=== PATIENT | female | born 2000 | race Two or more races ===

== ENCOUNTER 2023-10-16 12:56 | Emergency (ER) | payer OTHER ==
[~2023-10-16] VITALS: Ht 165.1 cm; Wt 132.4 kg
[2023-10-16] MEDS: IBUPROFEN 600MG TAB PO ONE (15:23)
[2023-10-16 15:52] LABS: BASO # 0.1 10^3/uL (0.0-0.2); BASO % 0.5 % (0.0-1.0); EOS # 0.1 10^3/uL (0.0-0.5); EOS % 1.3 % (0.0-3.0); HEMATOCRIT 40.4 % (36.0-47.0); HEMOGLOBIN 13.6 g/dl (12.0-15.5); LYMPH # 3.1 10^3/uL (1.5-5.0); MEAN CORPUSCULAR HEMOGLOBIN 29.8 pg (27.0-33.0); MEAN CORPUSCULAR HGB CONC 33.7 g/dl (32.0-36.5); MEAN CORPUSCULAR VOLUME 88.4 fl (80.0-96.0); MONO # 0.6 10^3/uL (0.0-0.8); MONO % 5.5 % (2.0-8.0); NEUTROPHILS % 63.2 % (36.0-66.0); PLATELET COUNT, AUTOMATED 267 10^3/uL (150-450); RED BLOOD COUNT 4.57 10^6/uL (4.00-5.40)
[2023-10-16 16:17] LABS: HCG, SERUM QUALITATIVE NEGATIVE (NEGATIVE)
[2023-10-16 16:39] VITALS: BP 132/79; TEMP 98.6; O2SAT 97
== END 2023-10-16 16:59 | disposition home or self-care (01) ==
LOC: M ED 12:56
DX: N93.9 Abnormal uterine and vaginal bleeding, unspecified (principal); E28.2 Polycystic ovarian syndrome

== ENCOUNTER → 2023-12-30 | Outpatient (CLI) | payer OTHER ==
[~2023-12-30] MED LIST: SEMA1PEN2 SQ
[2023-12-30 10:40] LABS: ALBUMIN 3.7 G/DL (3.2-5.2); ALKALINE PHOSPHATASE 72 U/L (35-104); ALT/SGPT 33 U/L (7.0-40); AST/SGOT 13 U/L (<34); BILIRUBIN,TOTAL 0.3 MG/DL (0.3-1.2); BLOOD UREA NITROGEN 9 MG/DL (9-23); CALCIUM LEVEL 8.8 MG/DL (8.5-10.1); CARBON DIOXIDE LEVEL 27 MMOL/L (20-31); CHLORIDE LEVEL 107 MMOL/L (98-107); CREATININE FOR GFR 0.68 MG/DL (0.55-1.30); ESTRADIOL 61.1 PG/ML; FOLLICLE STIMULATING HORMONE 4.1 mIU/ML; GLOMERULAR FILTRATION RATE > 60.0 (>60); GLUCOSE, FASTING 98 MG/DL (60-100); POTASSIUM SERUM 3.9 MMOL/L (3.5-5.1); SODIUM LEVEL 140 MMOL/L (136-145); THYROID STIMULATING HORMONE 2.672 uIU/ML (0.55-4.78); TOTAL PROTEIN 7.3 G/DL (5.7-8.2)
[2023-12-30 10:41] LABS: LUTEINIZING HORMONE 4.2 mIU/ML; PROLACTIN 11.11 NG/ML
[2023-12-30 10:42] LABS: FREE T4 0.96 NG/DL (0.89-1.76)
[2024-01-01 01:03] LABS: DEHYDROEPIANDROSTERONE SULFATE 143 mcg/dL (14-349)
== END ==
LOC: M PLALAB 08:49
PROVIDERS: ATTEND Nurse Practitioner Family
DX: E28.2 Polycystic ovarian syndrome (principal)

== ENCOUNTER → 2023-12-30 | Outpatient (CLI) | payer OTHER | LOC: M WHC 07:52 → MERGE 08:30 | PROVIDERS: ATTEND Nurse Practitioner Family | DX: R10.2 Pelvic and perineal pain (principal); N83.202 Unspecified ovarian cyst, left side ==

== ENCOUNTER 2024-09-28 13:58 | Day surgery (SDC) | payer OTHER ==
[~2024-09-28] VITALS: Ht 162.6 cm; Wt 136.4 kg
[~2024-09-28 13:58] MED LIST changes: +ACETAMINOPHEN 1000MG/100ML IV BAG As Ordered ONE; +BENZ200C70 PO; +CEFD300C PO; +LEVOTAB10 PO; +LEXA1TAB2 PO; +LIDOCAINE 2% 100 MG/5 ML SDV (FOR ANES.) As Ordered ONE; +MIDAZOLAM INJ 2 MG/2 ML VIAL As Ordered ONE; +ONDANSETRON 4MG 2ML VIAL As Ordered ONE; +PRED10TA2 PO; +ROCURONIUM BROMIDE 50MG/5ML VIAL As Ordered ONE; +dexAMETHasone 4 MG/ML 1 ML VIAL As Ordered ONE
[2024-09-28] MEDS ORDERED: LIDOCAINE 1% SDV 5 ML VIAL SC PRN (14:30)
[2024-09-28] MEDS ORDERED: LR 1,000 ML IV SCH ×2 (14:30→18:05)
[2024-09-28 14:41] LABS: PLATELET COUNT, AUTOMATED 235 10^3/uL (150-450)
[2024-09-28] MEDS ORDERED: OXYC1TAB23 PO (15:28)
[2024-09-28] MEDS ORDERED: KETOROLAC 30 MG/ML 1 ML VIAL As Ordered ONE (16:43)
[2024-09-28] MEDS ORDERED: SUGAMMADEX SODIUM 500 MG/5 ML VIAL As Ordered ONE (16:43)
[2024-09-28] MEDS ORDERED: PHENYLephrine 500MCG 5ML (100MCG/ML) SYRINGE As Ordered ONE (17:32)
[2024-09-28] MEDS: ONDANSETRON 4MG 2ML VIAL IV PRN (18:27)
[2024-09-28] MEDS: HYDROMORPHONE HCL 0.5 MG/0.5 ML SYRINGE IV PRN (18:33)
[2024-09-28 19:05] VITALS: BP 150/76; TEMP 96.9; O2SAT 95
== END 2024-09-28 19:35 | disposition home or self-care (01) ==
LOC: M SDC 13:58
PROVIDERS: ATTEND Specialist
DX: D27.1 Benign neoplasm of left ovary (principal); Q51.3 Bicornate uterus; Q51.22 Partial doubling of uterus; F41.9 Anxiety disorder, unspecified; Z79.899 Other long term (current) drug therapy; F17.290 Nicotine dependence, other tobacco product, uncomplicated; E66.01 Morbid (severe) obesity due to excess calories; Z68.43 Body mass index [BMI] 50.0-59.9, adult; N92.1 Excessive and frequent menstruation with irregular cycle
CPT/HCPCS: 36415; 58560; 58662; 81025; 85027; 86850; 86900; 86901; 88302; 88305; J0131; J0665; J1100; J1171; J1885; J2250; J2371; J2405; J3010